=== PATIENT | female | born 1955 | race Caucasian/White ===

== ENCOUNTER 2019-11-12 10:41 | Outpatient (CLI) | payer BC ==
--- NOTE | 2019-11-12 11:23 | MMO ---
Bilateral MAMMO Bilat Screen DDI+ANA. CLINICAL HISTORY: Patient is 64 years old and is seen for screening. The patient has no family history of breast cancer. The patient has no personal history of cancer. VIEWS: The views performed were: bilateral craniocaudal with tomosynthesis and bilateral mediolateral oblique with tomosynthesis. FILMS COMPARED: The present examination has been compared to a prior imaging study performed at [facility] on 07/11/2016. This study has been interpreted with the assistance of computer-aided detection. MAMMOGRAM FINDINGS: The breasts are heterogeneously dense, which could obscure a lesion on mammography. Finding 1: There are stable benign appearing calcifications seen in both breasts. Finding 2: There are amorphous or indistinct calcifications with grouped or clustered distribution seen in the middle upper-outer region of the right breast. IMPRESSION: FINDING 1: STABLE BENIGN APPEARING CALCIFICATIONS IN BOTH BREASTS ARE BENIGN. FINDING 2: AMORPHOUS OR INDISTINCT CALCIFICATIONS IN THE RIGHT BREAST REQUIRE ADDITIONAL EVALUATION. ADDITIONAL PROJECTIONS (RIGHT CRANIOCAUDAL SPOT COMPRESSION MAGNIFICATION; RIGHT MEDIOLATERAL OBLIQUE SPOT COMPRESSION MAGNIFICATION; RIGHT MEDIOLATERAL; AND RIGHT MEDIOLATERAL SPOT COMPRESSION MAGNIFICATION) ARE RECOMMENDED. THE RESULTS OF THIS EXAM WERE SENT TO THE PATIENT. ACR BI-RADS Category 0 - Incomplete: Need additional imaging evaluation. [facility] will notify the patient of the need for additional imaging services. MAMMOGRAPHY NOTE: 1. A negative mammogram report should not delay a biopsy if a dominant of clinically suspicious mass is present. 2. Approximately 10% to 15% of breast cancers are not detected by mammography. 3. Adenosis and dense breasts may obscure an underlying neoplasm. Reported by: DENVER DIMAS MD Electonically Signed: [id number]
== END 2019-11-12 10:42 | disposition home or self-care (01) ==
LOC: BICMAMMO 10:41
PROVIDERS: ATTEND Family Medicine
DX: Z12.31 Encounter for screening mammogram for malignant neoplasm of breast (principal); R92.1 Mammographic calcification found on diagnostic imaging of breast
CPT/HCPCS: 77063; 77067

== ENCOUNTER 2019-11-19 14:05 | Outpatient (CLI) | payer BC ==
--- NOTE | 2019-11-19 14:29 | MMO ---
Right Breast MAMMO Unilat Diag DDI RT+ANA. CLINICAL HISTORY: Patient is 64 years old and is seen for diagnostic exam. VIEWS: The views performed were: . FILMS COMPARED: The present examination has been compared to prior imaging studies performed at [facility] on 07/11/2016 and 11/12/2019. This study has been interpreted with the assistance of computer-aided detection. MAMMOGRAM FINDINGS: The breast is heterogeneously dense, which could obscure a lesion on mammography. The calcs in the right upper outer breast have a suspicious appearance and should be biopsied. IMPRESSION: FINDING IN THE RIGHT BREAST IS SUSPICIOUS. A STEREOTACTIC BREAST BIOPSY IS RECOMMENDED. THE RESULTS OF THIS EXAM WERE SENT TO THE PATIENT. ACR BI-RADS Category 4 - Suspicious abnormality - biopsy should be considered D/W pt inperson @ 1425 hrs. MAMMOGRAPHY NOTE: 1. A negative mammogram report should not delay a biopsy if a dominant of clinically suspicious mass is present. 2. Approximately 10% to 15% of breast cancers are not detected by mammography. 3. Adenosis and dense breasts may obscure an underlying neoplasm. Reported by: ROLLY VAZQUEZ MD Electonically Signed: [id number]
== END 2019-11-19 14:06 | disposition home or self-care (01) ==
LOC: BICMAMMO 14:05
PROVIDERS: ATTEND Family Medicine
DX: R92.1 Mammographic calcification found on diagnostic imaging of breast (principal)
CPT/HCPCS: G0279

== ENCOUNTER 2020-08-11 10:18 | Outpatient (CLI) | payer BC, MEDICARE ==
--- NOTE | 2020-08-11 11:07 | MMO ---
Right Breast MAMMO Unilat Diag DDI RT+ANA. CLINICAL HISTORY: Patient is 65 years old and is seen for diagnostic exam. The patient has no family history of breast cancer. The patient has no personal history of cancer. VIEWS: The views performed were: right craniocaudal with tomosynthesis; right mediolateral oblique with tomosynthesis; and right mediolateral with tomosynthesis. FILMS COMPARED: The present examination has been compared to prior imaging studies performed at [facility] on 07/11/2016, 11/12/2019 and 11/19/2019. This study has been interpreted with the assistance of computer-aided detection. MAMMOGRAM FINDINGS: The breast is heterogeneously dense, which could obscure a lesion on mammography. There are stable calcifications with grouped or clustered distribution seen in the upper-outer region of the right breast. There is suggestion of tea cupping on the ML view. IMPRESSION: STABLE CALCIFICATIONS IN THE RIGHT BREAST ARE PROBABLY BENIGN. FOLLOW-UP IN 6 MONTHS IS RECOMMENDED. THE RESULTS OF THIS EXAM WERE SENT TO THE PATIENT. ACR BI-RADS Category 3 - Probably benign finding - short interval follow-up suggested. [facility] will notify the patient of the need for additional imaging services. MAMMOGRAPHY NOTE: 1. A negative mammogram report should not delay a biopsy if a dominant of clinically suspicious mass is present. 2. Approximately 10% to 15% of breast cancers are not detected by mammography. 3. Adenosis and dense breasts may obscure an underlying neoplasm. Reported by: LEONID RUST MD Electonically Signed: [id number]
== END 2020-08-11 10:19 | disposition home or self-care (01) ==
LOC: BICMAMMO 10:18
PROVIDERS: ATTEND Family Medicine
DX: R92.8 Other abnormal and inconclusive findings on diagnostic imaging of breast (principal); R92.1 Mammographic calcification found on diagnostic imaging of breast
CPT/HCPCS: 77065; G0279

== ENCOUNTER 2021-01-19 13:33 | Outpatient (CLI) | payer MEDICARE | END 2021-01-19 13:34 | disposition home or self-care (01) | LOC: BICMAMMO 13:33 | PROVIDERS: ATTEND Family Medicine | DX: R92.8 Other abnormal and inconclusive findings on diagnostic imaging of breast (principal) | CPT/HCPCS: 77066; G0279 ==

== ENCOUNTER 2022-05-24 09:48 | Outpatient (CLI) | payer MEDICARE | END 2022-05-24 09:49 | disposition home or self-care (01) | LOC: BICMAMMO 09:48 | PROVIDERS: ATTEND Family Medicine | DX: Z12.31 Encounter for screening mammogram for malignant neoplasm of breast (principal) | CPT/HCPCS: 77063; 77067 ==

== ENCOUNTER 2023-06-13 09:39 | Outpatient (CLI) | payer MEDICARE | END 2023-06-13 09:40 | disposition home or self-care (01) | LOC: BICMAMMO 09:39 | PROVIDERS: ATTEND Family Medicine | DX: Z12.31 Encounter for screening mammogram for malignant neoplasm of breast (principal) | CPT/HCPCS: 77063; 77067 ==

== ENCOUNTER 2024-06-15 12:31 | Outpatient (CLI) | payer MEDICARE | END 2024-06-15 12:32 | disposition home or self-care (01) | LOC: BICMAMMO 12:31 | PROVIDERS: ATTEND Family Medicine | DX: Z12.31 Encounter for screening mammogram for malignant neoplasm of breast (principal) | CPT/HCPCS: 77063; 77067 ==